=== PATIENT | female | born 1995 | race Caucasian/White ===

== ENCOUNTER 2022-02-03 22:39 | Emergency (ER) | payer SELFPAY ==
[~2022-02-03] VITALS: Ht 167.6 cm; Wt 63.0 kg
[2022-02-03 22:49] VITALS: BP 117/82
== END 2022-02-04 00:30 | disposition left against medical advice (07) ==
LOC: ER 22:39
DX: Z53.21 Procedure and treatment not carried out due to patient leaving prior to being seen by health care provider (principal); Z98.890 Other specified postprocedural states